=== PATIENT | female | born 1950 | race Caucasian/White ===

== ENCOUNTER → 2017-01-17 | Outpatient (CLI) | payer MEDICARE, OTHER ==
[2017-01-13 16:30] VITALS: BMI 41.7
[2017-01-17 12:22] VITALS: BP 132/84; PULSE 81; RESP 16; TEMP 98.3
--- NOTE | 2017-01-17 12:42 | P.HPIM ---
History of Present Illness H&P Date: 01/17/17 Chief Complaint: neck pain and headaches This is a 66-year-old patient referred by Dr. Garcia for chronic pain in left side of the neck, back of the head, and retro-orbital pain on the left side with very rare numbness/tingling in the bilateral upper extremities, L > R. Patient has been taking medications from Dr. Farnsworth including Percocet medications with some relief. Patient denies adverse drug effects from medications. Patient also denies new-onset weakness, bowel/bladder incontinence , or any other signs or symptoms of cauda equina syndrome. There are no signs of acute intoxication, and no indications of medication diversion or overuse. Patient notes that pain worsens significantly with neck rotation and neck flexion and improves with rest, sleep, and medication. Patient has used several types of medications for pain, including NSAIDS, OPIOIDS (Percocet), TRAMADOL. Patient HAS NOT had surgery. Patient HAS NOT had injections previously. Patient HAS had physical therapy recently without relief. In addition to above, 13-point review of systems is also negative for chest pain , shortness of breath, changes in vision, changes in hearing, new onset weakness , abdominal pain, diarrhea, extreme fatigue, malaise, fever, skin changes, homicidal or suicidal ideation, or bowel or bladder incontinence. Vital Signs: Reviewed in EMR Gen: WDWN, AAOx3, NAD HEENT: NCAT, EOMI, hearing grossly normal, TTP occipital ridge on L >> R Pulm: resp unlabored Abd: soft, NT, ND Neck: supple, trachea midline ROM in flexion cervical spine: reduced ROM in extension cervical spine: reduced Cervical paravertebral tenderness: + L side Cervical Facet tenderness: + L side Spurling's: neg Neuro: CN II-XII grossly intact, muscle strength lower extremities PRESERVED Past Medical History Past Medical History: Diabetes Mellitus, Eye Disorder, Hyperlipidemia, Hypertension, Musculoskeletal Disorder, Osteoarthritis (OA), Sleep Apnea/CPAP/ BIPAP Additional Past Medical History / Comment(s): CHRONIC BACK PAIN. MIGRAINE. HAS CPAP, NOT USING LATELY D/T [facility]LEOD. History of Any Multi-Drug Resistant Organisms: None Reported Past Surgical History: Orthopedic Surgery, Tubal Ligation Additional Past Surgical History / Comment(s): RT CARPAL TUNNEL. I&D LEFT LEG. EXC TRIP Cataract surg. RT RING TRIGGER FINGER REPAIR. Past Anesthesia/Blood Transfusion Reactions: No Reported Reaction Smoking Status: Former smoker - Past Family History Mother Family Medical History: No Reported History Medications and Allergies Home Medications Medication Instructions Recorded Confirmed Type Aspirin EC [Ecotrin] 81 mg PO DAILY 11/08/14 01/17/17 History Cholecalciferol [Vitamin D3] 1,000 unit PO DAILY 11/08/14 01/17/17 History Gabapentin [Neurontin] 300 mg PO BID 11/08/14 01/17/17 History Lisinopril [Zestril] 2.5 mg PO QAM 11/08/14 01/17/17 History Simvastatin [Simvastatin] 40 mg PO HS 11/08/14 01/17/17 History glipiZIDE [Glucotrol] 2.5 mg PO AC-BRKFST 11/08/14 01/17/17 History metFORMIN HCL [metFORMIN HCL] 1,000 mg PO BID 11/08/14 01/17/17 History Multivitamin with Iron 1 each PO DAILY 01/13/17 01/17/17 History [Multivitamins with Iron] Polyethylene Glycol 3350 [Miralax] 17 gm PO DAILY 01/13/17 01/17/17 History Topiramate [Trokendi Xr] 100 mg PO DAILY 01/13/17 01/17/17 History oxyCODONE-APAP 10-325MG [Percocet 1 tab PO QID PRN 01/13/17 01/17/17 History 10-325 mg] Allergies Allergy/AdvReac Type Severity Reaction Status Date / Time No Known Allergies Allergy Verified 01/13/17 16:12 Physical Exam Vitals: Vital Signs Temp Pulse Resp BP Pulse Ox 01/17/17 12:11 98.3 F 81 16 132/84 96 Results Comments: MRI brain without contrast dated 12/24/2013 demonstrates mild nonspecific white matter changes with product of chronic small vessel ischemic change favored secondary to age. Assessment and Plan (1) Cervical spondylosis without myelopathy Status: Chronic (2) Occipital neuralgia Status: Chronic (3) Chronic pain syndrome Status: Chronic Plan: 1. Explanation: Opioid and psychological risk scores were reviewed. Diagnoses , prognoses, and multiple treatment options including but not limited to physical therapy, interventional therapies, adjuvant medical therapies, narcotic medication therapies, and surgery were discussed with the patient and all questions were answered to the patient's satisfaction. 2. Opioid agreement: no opioids prescribed today 3. Counseling: The patient was counseled extensively on BODY MASS INDEX, EXERCISE. Specifically, the patient was instructed regarding the importance of weight control, and exercise in the context of both chronic pain and overall health. 4. Procedures: left occipital nerve block 5. Consultations: none 6. Investigations: none 7. Medications: none 8. Disposition: f/u for procedure as scheduled. Will do ONB x 2; if little relief, consider MRI C-spine PQRS measures: 1-Patient's medications are documented in the chart. 2-Tobacco use is negative 3-Patient has not had a pneumococcal vaccine. 4-Advanced care planning discussed, patient unable to give. 5-Opioid contract NOT signed with the patient. 6-Pain positive, follow-up visit or procedure scheduled 7-Patient's blood pressure measured and documented, and patient will follow up with the primary care due to hypertension. 8-Patient's weight was measured, and body mass index ABOVE the normal limits, and counseling was done. Patient instructed to follow up with PCP. 9-Patient WAS NOT identified as an unhealthy alcohol user. Time with Patient: Greater than 30
== END | disposition home or self-care (01) ==
LOC: PNWHC3 11:56
PROVIDERS: ATTEND Anesthesiology
DX: M47.812 Spondylosis without myelopathy or radiculopathy, cervical region (principal); M54.81 Occipital neuralgia; G89.4 Chronic pain syndrome; Z87.891 Personal history of nicotine dependence; Z79.899 Other long term (current) drug therapy; I10 Essential (primary) hypertension; E11.9 Type 2 diabetes mellitus without complications; Z79.4 Long term (current) use of insulin; E78.5 Hyperlipidemia, unspecified; G47.30 Sleep apnea, unspecified; Z99.89 Dependence on other enabling machines and devices; G43.009 Migraine without aura, not intractable, without status migrainosus
CPT/HCPCS: 99211

== ENCOUNTER → 2017-01-27 | Outpatient (CLI) | payer MEDICARE, OTHER ==
--- NOTE | 2017-01-28 08:59 | MM ---
Reason for exam: screening (asymptomatic). Last mammogram was performed 1 year and 1 month ago. History: Patient is postmenopausal. Physical Findings: A clinical breast exam by your physician is recommended on an annual basis and results should be correlated with mammographic findings. MG 3D Screening Mammo W/Cad Bilateral CC and MLO view(s) were taken. Prior study comparison: January 07, 2016, bilateral MG 3d screening mammo w/cad. January 03, 2015, bilateral MG screening mammo w CAD. There are scattered fibroglandular densities. No significant changes when compared with prior studies. ASSESSMENT: Benign, BI-RAD 2 RECOMMENDATION: Routine screening mammogram of both breasts in 1 year.
== END | disposition home or self-care (01) ==
LOC: RADMAMWWP 15:30
PROVIDERS: ATTEND Family Medicine
DX: Z12.31 Encounter for screening mammogram for malignant neoplasm of breast (principal)
CPT/HCPCS: 77063; G0202

== ENCOUNTER 2017-02-14 07:30 | Day surgery (SDC) | payer MEDICARE, OTHER ==
[2017-02-04 15:19] VITALS: BMI 40.2
[2017-02-14] MEDS ORDERED: LACTATED RINGERS 1,000 ML IV SCH (07:45)
[2017-02-14 07:55] VITALS: RESP 18; TEMP 96.8
[2017-02-14] MEDS ORDERED: LIDOCAINE 1% 20 ML VIAL (10MG/ML) FOR IV START SQ ONE (07:56)
[2017-02-14 08:08] LABS: Glucose,Whole Blood 151 mg/dL (75-99)
--- NOTE | 2017-02-14 08:21 | P.PCN ---
Date of Procedure: 02/14/17 Preoperative Diagnosis: Postoperative Diagnosis: Procedure(s) Performed: Implants: Surgeon: Nick Emery Pathology: none sent Condition: stable Disposition: PACU Indications for Procedure: Operative Findings: Description of Procedure: Pre-operative diagnosis: 1- Left occipital neuralgia Post Operative Diagnosis: 1- Left occipital neuralgia Procedure: Left occipital nerve block ANESTHESIA: Conscious sedation with Versed. EBL: Minimal PROCEDURE INDICATION: The patient with neck pain and headache secondary to occipital neuralgia and has failed conservative management. No use of blood thinners. PROCEDURE DESCRIPTION / TECHNIQUE: The patient was seen and identified in the preoperative area. Risks, benefits, complications, and alternatives were discussed with the patient (including but not limited to incomplete pain relief , bleeding, infection, nerve damage, and allergies to medications), the patient agreed to proceed with the procedure and signed the consent after all questions were answered. Patient was taken to the OR and time out was completed to verify proper patient , position, laterality of pain, and allergies. Pt was placed in the sitting position. IV was started. Vital signs remained stable throughout the procedure. Conscious sedation was used during the procedure to decrease patients anxiety. The cervical area and left occipital areas were prepped in the usual sterile fashion. Critical pause was taken. The left occipital ridge was palpated and was then accessed with a 25-gauge 1.5- inch needle. Then after negative aspiration, 4 ml of the total 4 ml block solution containing 3 ml of PF Bupivacaine 0.5% and Kenalog 40 mg was injected. Needle was withdrawn intact, skin was cleansed, and bandages were applied. There were no acute complications. DISPOSITION / PLANS: The patient was placed in a supine position and transferred to the recovery area in a stable condition for observation and was discharged from the recovery room after meeting discharge criteria. Home discharge instructions given to the patient by the staff. The patient was reexamined prior to discharge. The patient will schedule a follow up injection in approximately 2-4 weeks.
[2017-02-14] MEDS ORDERED: IV FLUID CONTINUATION 1,000 ML IV ONE (08:23)
[2017-02-14 08:46] VITALS: BP 114/81; PULSE 78
== END 2017-02-14 08:54 | disposition home or self-care (01) ==
LOC: ORPAIN 07:30
PROVIDERS: ATTEND Anesthesiology
DX: M54.81 Occipital neuralgia (principal); Z79.1 Long term (current) use of non-steroidal anti-inflammatories (NSAID); Z79.891 Long term (current) use of opiate analgesic
CPT/HCPCS: 64405; 99152; 99153; J2250; J3301

== ENCOUNTER → 2017-06-10 | Outpatient (CLI) | payer MEDICARE, OTHER ==
--- NOTE | 2017-06-10 18:53 | US ---
EXAMINATION TYPE: US venous doppler duplex LE DATE OF EXAM: 06/10/2017 6:34 PM COMPARISON: NONE CLINICAL HISTORY: R22.43 Localized swelling, mass and lump, lower li. Bilateral edema SIDE PERFORMED: Bilateral TECHNIQUE: The lower extremity deep venous system is examined utilizing real time linear array sonog dotty with graded compression, doppler sonography and color-flow sonography. VESSELS IMAGED: External Iliac Vein (EIV) Common Femoral Vein Deep Femoral Vein Greater Saphenous Vein * Femoral Vein Popliteal Vein Small Saphenous Vein * Proximal Calf Veins (* superficial vessels) Exam limitations due to body habitus Right Leg: Negative for DVT Left Leg: Negative for DVT No evidence of DVT bilateral legs IMPRESSION: Negative exam. No evidence of deep venous thrombosis in both legs.
== END | disposition home or self-care (01) ==
LOC: RADUSMAIN 17:47
PROVIDERS: ATTEND Family Medicine
DX: R22.43 Localized swelling, mass and lump, lower limb, bilateral (principal); E11.65 Type 2 diabetes mellitus with hyperglycemia
CPT/HCPCS: 93970

== ENCOUNTER → 2017-11-03 | Outpatient (CLI) | payer MEDICARE, OTHER ==
--- NOTE | 2017-11-03 21:51 | MR ---
EXAMINATION TYPE: MR brain wo con DATE OF EXAM: 11/03/2017 4:35 PM COMPARISON: 12/24/2013 HISTORY: R51 Headache / R41.3 Memory problem FINDINGS: The ventricles, basal cisterns and sulci overlying the cerebral convexities are mildly enlarged. There is evidence of mild periventricular white matter ischemic demyelination. Remote deep white matter insults are also noted. No acute edema is seen on diffusion weighted imaging. There is no evidence for midline shift or mass effect. Acute intracranial hemorrhage or extra-axial collection is not evident. The paranasal sinuses and mastoid air cells are well-aerated. IMPRESSION: Age-related atrophic and chronic small vessel ischemic change. No acute intracranial process at this time.
== END | disposition home or self-care (01) ==
LOC: RADMRIMAIN 15:30
PROVIDERS: ATTEND Family Medicine
DX: G31.9 Degenerative disease of nervous system, unspecified (principal); I67.82 Cerebral ischemia
CPT/HCPCS: 70551

== ENCOUNTER → 2018-01-26 | Outpatient (CLI) | payer MEDICARE, OTHER ==
--- NOTE | 2018-01-26 14:23 | CT ---
EXAMINATION TYPE: CT sinus wo con DATE OF EXAM: 01/26/2018 COMPARISON: None HISTORY: 67-year-old female Headache, nasal congestion CT DLP: 569.10 mGycm Automated exposure control for dose reduction was used. TECHNIQUE: Noncontrast axial views of the paranasal sinuses were obtained. Coronal reconstructions pe rformed. FINDINGS: PARANASAL SINUSES: Trace mucosal thickening anterior ethmoid air cells. Otherwise, the frontal, maxillary, and sphenoid sinuses are clear and well pneumatized. There is no air-fluid level. Reactive seymour- osteogenesis is not seen. There is no destruction of the osseous faria of the paranasal sinuses. THE NASAL CAVITY: The osteomeatal complexes are patent. The nasal septum is not significantly deviated. There is slight angulation. The imaged brain and orbits are normal in appearance. There is a small amount of congenital fat along the anterior falx. Visualized portions of the mastoid air cells and middle ear cavities are well pneumatized. Reformatted images confirm above findings. IMPRESSION: Very trace mucosal thickening in the anterior ethmoid air cells. Otherwise, no paranasal sinus diseas e.
== END | disposition home or self-care (01) ==
LOC: RADCTMAIN 12:11
PROVIDERS: ATTEND Family Medicine
DX: R51 Headache (principal); R09.81 Nasal congestion
CPT/HCPCS: 70486

== ENCOUNTER → 2018-02-23 | Outpatient (CLI) | payer MEDICARE, OTHER ==
--- NOTE | 2018-02-28 12:38 | MM ---
Reason for exam: screening (asymptomatic). Last mammogram was performed 1 year and 1 month ago. History: Patient is postmenopausal. Physical Findings: A clinical breast exam by your physician is recommended on an annual basis and results should be correlated with mammographic findings. MG 3D Screening Mammo W/Cad Bilateral CC and MLO view(s) were taken. Prior study comparison: January 27, 2017, bilateral MG 3d screening mammo w/cad. January 07, 2016, bilateral MG 3d screening mammo w/cad. There are scattered fibroglandular densities. Finding: There are typically benign round, linear and diffuse/scattered calcifications in both breasts, greater in the left breast. There is no discrete abnormality. ASSESSMENT: Benign, BI-RAD 2 RECOMMENDATION: Routine screening mammogram of both breasts in 1 year.
== END | disposition home or self-care (01) ==
LOC: RADMAMWWP 14:10
PROVIDERS: ATTEND Family Medicine
DX: Z12.31 Encounter for screening mammogram for malignant neoplasm of breast (principal)
CPT/HCPCS: 77063; 77067

== ENCOUNTER → 2019-05-04 | Outpatient (CLI) | payer MEDICARE, OTHER ==
--- NOTE | 2019-05-07 08:38 | BD ---
EXAMINATION TYPE: Axial Bone Density DATE OF EXAM: 05/04/2019 COMPARISON: NONE CLINICAL HISTORY: Postmenopausal female Height: 62 Weight: 230.6 FRAX RISK QUESTIONS: Alcohol (3 or more units per day): no Family History (Parent hip fracture): no Glucocorticoids (More than 3mos): no (Ex: prednisone, prednisolone, methylprednisolone, dexamethasone, and hydrocortisone). History of Fracture in Adulthood: no Secondary Osteoporosis: 1. Type 1 Diabetes: no 2. Hyperthyroidism: no 3. Menopause before 45: no 4. Malnutrition: no 5. Chronic liver disease: no Rheumatoid Arthritis: yes Current Tobacco Use: no RISK FACTORS HISTORY OF: Family History of Osteoporosis: no Active: yes Diet low in dairy products/other sources of calcium: no Postmenopausal woman: age 56 MEDICATIONS: type two diabetic meds, pain pills Additional History: EXAM MEASUREMENTS: Bone mineral densitometry was performed using the [employer] System. Bone mineral density as measured about the Lumbar spine is: ----- L1-L4(G/cm2): 1.367 T Score Values are as follows: ----- L2: 1.4 ----- L3: 2.2 ----- L4: 1.6 ----- L1-L4: 1.6 Bone mineral density has: increased 0.7 % since study of: 01.13.2015 Bone mineral density about the R hip (g/cm2): 1.031 Bone mineral density about the L hip (g/cm2): 1.067 T Score values are as follows: -----R Neck: -0.1 -----L Neck: 0.2 -----R Total: 1.3 -----L Total: 1.0 Bone mineral density has: decreased -5.5 % since study of: 01.13.2015 IMPRESSION: Normal (Values between +1 and -1 indicate normal bone mass). Consider repeating this study in 5 year s or sooner if there is some new clinical indication. NOTE: T-SCORE=SD OF THE YOUNG ADULT MEAN.
--- NOTE | 2019-05-07 10:07 | MM ---
Reason for exam: screening (asymptomatic). Last mammogram was performed 1 year and 2 months ago. History: Patient is postmenopausal. Physical Findings: A clinical breast exam by your physician is recommended on an annual basis and results should be correlated with mammographic findings. MG Screening Mammo w CAD Bilateral CC and MLO view(s) were taken. Prior study comparison: February 23, 2018, bilateral MG 3d screening mammo w/cad. January 27, 2017, bilateral MG 3d screening mammo w/cad. There are scattered fibroglandular densities. No significant changes when compared with prior studies. ASSESSMENT: Negative, BI-RAD 1 RECOMMENDATION: Routine screening mammogram of both breasts in 1 year.
== END | disposition home or self-care (01) ==
LOC: RADMAMWWP 13:40
PROVIDERS: ATTEND Family Medicine
DX: Z12.31 Encounter for screening mammogram for malignant neoplasm of breast (principal); Z13.820 Encounter for screening for osteoporosis; Z78.0 Asymptomatic menopausal state
CPT/HCPCS: 77067; 77080

== ENCOUNTER → 2019-11-08 | Outpatient (CLI) | payer MEDICARE ==
--- NOTE | 2019-11-08 15:03 | CT ---
EXAMINATION TYPE: CT abdomen pelvis w con DATE OF EXAM: 11/08/2019 HISTORY: Abnormal liver enzymes. CT DLP: 1833.7mGycm Automated Exposure Control for Dose Reduction was Utilized. CONTRAST: CT scan of the abdomen and pelvis is performed with IV Contrast, patient injected with 100 mL of Isov ue M300. COMPARISON: None. FINDINGS: LUNG BASES: Mild cardiomegaly. Calcification at level of mitral valve. LIVER/GB: Versus heterogeneously hypodense relative to spleen suggesting mild diffuse fatty infiltrat ion. This can be confirmed with noncontrast CT or ultrasound if desired. No suspicious masses or duct al dilatation. No CT dense intraluminal gallstones in the gallbladder PANCREAS: No significant abnormality is seen. SPLEEN: Incidental tiny splenule axial image 31. ADRENALS: No significant abnormality is seen. KIDNEYS: Symmetric cortical atrophy uptake and excretion without hydronephrosis seen bilaterally. Sim ple appearing 1.5 cm thin-walled cyst anteriorly upper pole of the right kidney axial image 31. No in traluminal calculi in the bladder. BOWEL: Small hiatal hernia. Oral contrast reaches level of cecum. Normal-appearing appendix coronal i mage 59. No suspicious small or large bowel dilatation. UTERUS/ADNEXA: Anteverted uterus projecting to left of midline. Normal-sized ovaries. Occasional pelv ic phleboliths. LYMPH NODES: No greater than 1cm abdominal or pelvic lymph nodes are appreciated. OSSEOUS STRUCTURES: Facet arthropathy lower lumbar spine. Moderate to severe multilevel disc space na rrowing L2-L3 through the L5-S1 levels. Moderate axial joint space loss in both hips. OTHER: No significant additional abnormality is seen. IMPRESSION: Heterogeneous hypodense appearance of the liver suggests probable diffuse fatty infiltrat ion. No worrisome intrahepatic mass or intrahepatic ductal dilatation is seen.
== END | disposition home or self-care (01) ==
LOC: RADCTMAIN 12:01
PROVIDERS: ATTEND Internal Medicine Hematology & Oncology
DX: R74.0 Nonspecific elevation of levels of transaminase and lactic acid dehydrogenase [LDH] (principal)
CPT/HCPCS: 82565; 84520; 74177; 36415; Q9967 ×2

== ENCOUNTER → 2020-12-25 | Outpatient (CLI) | payer MEDICARE, OTHER ==
--- NOTE | 2020-12-26 12:42 | MM ---
Reason for exam: screening (asymptomatic). Last mammogram was performed 1 year and 8 months ago. History: Patient is postmenopausal. Physical Findings: A clinical breast exam by your physician is recommended on an annual basis and results should be correlated with mammographic findings. MG Screening Mammo w CAD Bilateral CC and MLO view(s) were taken. Prior study comparison: May 04, 2019, bilateral MG screening mammo w CAD. February 23, 2018, bilateral MG 3d screening mammo w/cad. There are scattered fibroglandular densities. ASSESSMENT: Negative, BI-RAD 1 RECOMMENDATION: Routine screening mammogram of both breasts in 1 year.
== END | disposition home or self-care (01) ==
LOC: RADMAMWWP 12:52
PROVIDERS: ATTEND Family Medicine
DX: Z12.31 Encounter for screening mammogram for malignant neoplasm of breast (principal); Z78.0 Asymptomatic menopausal state
CPT/HCPCS: 77067

== ENCOUNTER → 2021-11-04 | Outpatient (CLI) | payer MEDICARE, OTHER ==
--- NOTE | 2021-11-04 12:07 | US ---
EXAMINATION TYPE: US venous doppler duplex LE RT DATE OF EXAM: 11/04/2021 11:49 AM COMPARISON: Bilateral lower extremity ultrasound June 10, 2017. CLINICAL HISTORY: M25.561 Pain in RT Knee. Pt states right knee pain SIDE PERFORMED: Right TECHNIQUE: The lower extremity deep venous system is examined utilizing real time linear array sonog dotty with graded compression, doppler sonography and color-flow sonography. VESSELS IMAGED: Common Femoral Vein Deep Femoral Vein Greater Saphenous Vein * Femoral Vein Popliteal Vein Small Saphenous Vein * Proximal Calf Veins (* superficial vessels) Right Leg: Negative for DVT Results given to Dr. Castellanos at time of exam Grayscale, color doppler, spectral doppler imaging performed of the deep veins of the right lower ext remity. There is normal flow, compressibility, vascular waveforms. IMPRESSION: No ultrasound evidence for acute DVT in the right lower extremity.
== END | disposition home or self-care (01) ==
LOC: RADUSWWP 11:28
PROVIDERS: ATTEND Family Medicine
DX: M25.561 Pain in right knee (principal)

== ENCOUNTER → 2021-12-23 | Outpatient (CLI) | payer MEDICARE, OTHER ==
--- NOTE | 2021-12-23 09:35 | MR ---
EXAMINATION TYPE: MR cspine/tspine/lspine wo con DATE OF EXAM: 12/23/2021 COMPARISON: Prior MRI cervical and lumbar spine 2011 HISTORY: Back pain, sciatica TECHNIQUE: Multiplanar, multisequence imaging of the cervical, thoracic, and lumbar spine are all per formed without IV contrast. C-SPINE: FINDINGS: Sagittal images of the cervical spine show the craniocervical junction to remain within nor mal limits. The cervical and upper thoracic spinal cord remains normal in caliber and signal. Verte bral alignment is stable and satisfactory. The vertebral body and intravertebral disk heights remain normal. Small hemangioma involving the anterior C6 vertebra sagittal image 6 noted. Axial images show C2-C3 level to appear within normal limits. Axial images at C3-C4 levels with broad-based left paracentral/foraminal disc protrusion effacing ant erolateral thecal sac and causing moderate left-sided neural foraminal narrowing. Axial images at C4-C5 level appear within normal limits. Axial images at C5-C6 levels show focal broad-based left paracentral disc protrusion effacing the ant erior thecal sac causing flattening of the ventral surface more prominent from prior, patent bilatera l neural foramina. Axial images at C6-C7 and C7-T1 levels appear within normal limits. IMPRESSION: Posterior disc herniations at C3-C4 and C5-C6 levels noted on current study. T-SPINE: FINDINGS: Spinal cord shows normal course, caliber, and signal as it courses the thoracic spine. Cooper tebral body heights and alignment are satisfactory. Disc space heights are preserved. Tiny posterior disc herniations mildly efface the anterior thecal sac at T5-T6 and T6-T7 level sagittal image 7. Bon e marrow signal intensity is preserved. Mild to moderate multilevel anterior spurring. Review of the axial images confirm the above left paracentral tiny disc protrusions. No additional la rge disc herniation is present. Visualized thorax and upper abdomen show no significant abnormality. IMPRESSION: A few tiny posterior disc herniations. L-SPINE: Sagittal images of the lumbar spine show vertebral body height to remain satisfactory. Alignment is m ore straightened. Multilevel disc desiccation with moderate to advanced disc space narrowing at L2-L3 through the L4-L5 levels and new heterogeneous Modic type II endplate changes more prominent from pr ior. The conus medullaris is normal in position and signal ending at mid L1 level. Axial images show T12-L1 level to appear within normal limits. Axial images at L1-L2 level show mild broad disc bulge mildly effacing the anterior thecal sac and mi ld facet arthropathy bilaterally. Patent bilateral neural foramina. Axial images at L2-L3 level show mild mild broad-based posterior disc protrusion mildly effacing the anterior thecal sac and mild facet arthropathy bilaterally. Patent bilateral neural foramina. Axial images at the L3-L4 level show mild/moderate broad disc bulge with central disc protrusion effa cing the anterior thecal sac and mild/moderate facet arthropathy and ligamentum flavum hypertrophy. T here is mild to moderate bilateral anterior inferior neural foraminal narrowing noted. Axial images at L4-L5 level show moderate facet arthropathy bilaterally. There is some effacement of the left lateral thecal sac. The bilateral neural foramina noted. Axial images at L5-S1 levels show [id number] facet arthropathy bilaterally. Spinal canal is pre served. Bilateral neural foramina are patent. IMPRESSION: Straightening of lumbar spine with multilevel degenerative changes showing some interval degenerative progression from 2012 MRI..
== END | disposition home or self-care (01) ==
LOC: RADMRIMAIN 07:15
PROVIDERS: ATTEND Family Medicine
DX: M50.122 Cervical disc disorder at C5-C6 level with radiculopathy (principal); M51.14 Intervertebral disc disorders with radiculopathy, thoracic region; M51.16 Intervertebral disc disorders with radiculopathy, lumbar region; M47.26 Other spondylosis with radiculopathy, lumbar region
CPT/HCPCS: 72141; 72146; 72148

== ENCOUNTER → 2022-01-12 | Outpatient (CLI) | payer MEDICARE, OTHER ==
--- NOTE | 2022-01-14 08:30 | MM ---
Reason for Exam: Screening (asymptomatic). Last mammogram was performed 1 year(s) and 1 month(s) ago. Patient History: Menarche at age 14. First Full-Term at age 19. Postmenopausal. Risk Values: Shannan 5 year model risk: 1.1%. NCI Lifetime model risk: 3.2%. Prior Study Comparison: 02/23/2018 Bilateral Screening Mammogram, [facility]. 05/04/2019 Bilateral Screening Mammogram, [facility]. 12/25/2020 Bilateral Screening Mammogram, [facility]. Tissue Density: There are scattered fibroglandular densities. Findings: Analyzed By CAD. There are grouped punctate calcifications in the outer left breast which is an interval change. This may be associated with a vascular structure. Additional magnification views are recommended. Right breast appears stable. Overall Assessment: Incomplete: need additional imaging evaluation, BI-RAD 0 Management: Diagnostic Mammogram of the left breast. A negative mammogram report should not preclude additional follow up of suspicious palpable abnormalities. Patient should continue monthly self breast exam. A clinical breast exam by your physician is recommended on an annual basis and results should be correlated with mammographic findings. Electronically signed and approved by: Matthew Dodd D.O. Radiologis
== END | disposition home or self-care (01) ==
LOC: RADMAMWWP 14:53
PROVIDERS: ATTEND Family Medicine
DX: Z12.31 Encounter for screening mammogram for malignant neoplasm of breast (principal); Z78.0 Asymptomatic menopausal state
CPT/HCPCS: 77063; 77067

== ENCOUNTER → 2022-01-25 | Outpatient (CLI) | payer MEDICARE, OTHER ==
--- NOTE | 2022-01-27 12:30 | MM ---
Reason for Exam: Additional evaluation requested from abnormal screening. Last screening mammogram was performed less than 1 month ago. Patient History: Menarche at age 14. First Full-Term at age 19. Postmenopausal. Risk Values: Shannan 5 year model risk: 1.1%. NCI Lifetime model risk: 3.2%. Prior Study Comparison: 05/04/2019 Bilateral Screening Mammogram, [facility]. 12/25/2020 Bilateral Screening Mammogram, [facility]. 01/12/2022 Bilateral MG 3D screening mammo w/cad, [facility]. Tissue Density: Left: The breast tissue is heterogeneously dense. This may lower the sensitivity of mammography. Findings: Analyzed By CAD. Scattered left breast calcifications without suspicious clusters seen at this time. Overall Assessment: Benign, BI-RAD 2 Management: Screening Mammogram of both breasts in 1 year. A clinical breast exam by your physician is recommended on an annual basis and results should be correlated with mammographic findings. This exam should not preclude additional follow-up of suspicious palpable abnormalities. Results were given to the patient verbally at the time of exam. Electronically signed and approved by: Victor Manuel Francis M.D. Radiologis
== END | disposition home or self-care (01) ==
LOC: RADMAMWWP 13:28
PROVIDERS: ATTEND Family Medicine
DX: R92.8 Other abnormal and inconclusive findings on diagnostic imaging of breast (principal); Z78.0 Asymptomatic menopausal state
CPT/HCPCS: 77065; G0279; 77061

== ENCOUNTER → 2022-02-23 | Outpatient (CLI) | payer MEDICARE ==
--- NOTE | 2022-02-23 14:44 | CT ---
EXAMINATION TYPE: CT sinus wo con CT DLP: 577.3 mGycm, Automated exposure control for dose reduction was used. DATE OF EXAM: 02/23/2022 2:18 PM COMPARISON: 01/26/2019. CLINICAL INDICATION:Female, 71 years old with history of R51.9 headache,R51; [facility], Headaches CONTRAST: None. TECHNIQUE: Multiple thin axial images were obtained through the paranasal sinuses without the use of IV contrast. Additional coronal and sagittal reformatted images were submitted for evaluation. FINDINGS: Frontal sinuses: Normally developed and aerated. Frontal Recess: Clear Modified Cori-Antonio Score: Right 1 = 1-25% Opacified, Left 0 = 0% Opacified Maxillary Sinuses: Normally developed and aerated. Modified Coir-Antonio Score: Right 0 = 0% Opacified, Left 0 = 0% Opacified Maxillary Infundibula(OMC): Clear, No Alberto cells identified. Modified Cori-Antonio Score: Right 0 = Completely patent, Left 0 = Completely patent Ethmoid sinuses: Normally developed and aerated. Ethmoidal notch: Unprotected bilateral anterior ethm oidal arteries. Modified [place]-Vicco Score: Anterior Right 0 = 0% Opacified, Left 0 = 0% Opacified Posterior Right 0 = 0% Opacified, Left 0 = 0% Opacified Sphenoid sinuses: Normally developed and aerated. There is sellar sphenoid sinus pneumatization witho ut evidence of dehiscence. No dehiscence of carotid canal. No evidence of optic nerve dehiscence wit hin the sphenoid sinus. No evidence of Onodi cells. Sphenoethmoidal recesses: Clear. Modified Cori-Vicco Score: Right 1 = 1-25% Opacified, Left 0 = 0% Opacified. Nasal septum: Within normal limits Nasal Turbinates: Within normal limits. Mastoid air cells & middle ears: The air cells are clear. The middle ears are grossly unremarkable. Modified Soft tissues & Brain: Partially seen without gross abnormality. Globes are intact. Other: Cribriform plate demonstrates symmetric Keros classification type 2 cribriform plate. No evidence of bony dehiscence of skull base. Lamina papyracea is intact without evidence of remote orbital fracture or orbital prolapse into the e thmoid sinus. IMPRESSION: 1. No significant mucosal sinus disease. 2. The ostiomeatal units, frontonasal and sphenoethmoidal recesses are clear. 3. Opacification burden of 2/54 on the Modified [place]-Antonio scoring system.
== END | disposition home or self-care (01) ==
LOC: RADCTMAIN 14:03
PROVIDERS: ATTEND Family Medicine
DX: J34.89 Other specified disorders of nose and nasal sinuses (principal); R51.0 Headache with orthostatic component, not elsewhere classified
CPT/HCPCS: 70486

== ENCOUNTER 2023-03-25 09:23 | Emergency (ER) | payer MEDICARE ==
[2023-03-25 09:28] VITALS: RESP 20; TEMP 98.2
[2023-03-25] MEDS ORDERED: HYDROmorphone 1 MG/ML 1 ML SYRINGE IVP STA ×2 (09:50→13:06)
[2023-03-25] MEDS ORDERED: KETOROLAC 15 MG/ML 1 ML VIAL IVP STA (09:50)
--- NOTE | 2023-03-25 09:52 | ED ---
General Adult HPI - General Chief complaint: Neck Pain/Injury Stated complaint: Neck pain Time Seen by Provider: 03/25/23 09:29 Source: patient, RN notes reviewed Mode of arrival: ambulatory Limitations: no limitations - History of Present Illness Initial comments: Patient is a pleasant 73-year-old female presenting to the emergency department with concern with neck pain. Onset of symptoms was a couple of days ago when she woke up. Discomfort has been steady and severe since that time. Patient states it is difficult to lift her right arm secondary to pain. No weakness. Patient states pain starts in her mid to lower neck and does radiate down her arm. Patient does have history of chronic neck problems. Patient does see a pain doctor for neck problems and does take Percocet for this. Patient did take 1 Percocet this morning. No loss of sensation. - Related Data Home Medications Medication Instructions Recorded Confirmed Aspirin EC [Ecotrin] 81 mg PO DAILY 11/08/14 05/02/17 Cholecalciferol [Vitamin D3] 1,000 unit PO DAILY 11/08/14 05/02/17 Gabapentin [Neurontin] 300 mg PO BID 11/08/14 05/02/17 Simvastatin 40 mg PO HS 11/08/14 05/02/17 glipiZIDE [Glucotrol] 2.5 mg PO AC-BRKFST 11/08/14 05/02/17 lisinopriL [Zestril] 2.5 mg PO QAM 11/08/14 05/02/17 metFORMIN HCL 1,000 mg PO BID 11/08/14 05/02/17 Multivitamin with Iron 1 each PO DAILY 01/13/17 05/02/17 [Multivitamins with Iron] Topiramate [Trokendi Xr] 100 mg PO HS 01/13/17 05/02/17 oxyCODONE-APAP 10-325MG [Percocet 1 tab PO QID PRN 01/13/17 05/02/17 10-325 mg] polyethylene glycoL 3350 [Miralax] 17 gm PO DAILY 01/13/17 05/02/17 Previous Rx's Medication Instructions Recorded Cyclobenzaprine [Flexeril] 10 mg PO TID PRN #12 tablet 03/25/23 Allergies Allergy/AdvReac Type Severity Reaction Status Date / Time No Known Allergies Allergy Verified 03/25/23 09:27 Review of Systems ROS Statement: Those systems with pertinent positive or pertinent negative responses have been documented in the HPI. ROS Other: All systems not noted in ROS Statement are negative. Constitutional: Denies: fever Eyes: Denies: eye pain ENT: Denies: ear pain Respiratory: Denies: cough Cardiovascular: Denies: chest pain Endocrine: Denies: fatigue Gastrointestinal: Denies: abdominal pain Genitourinary: Denies: dysuria Musculoskeletal: Reports: as per HPI Neurological: Denies: headache, weakness, confusion Past Medical History Past Medical History: Diabetes Mellitus, Eye Disorder, Hyperlipidemia, Hyper tension, Musculoskeletal Disorder, Osteoarthritis (OA), Sleep Apnea/CPAP/BIPAP Additional Past Medical History / Comment(s): ANEMIA,CHRONIC NECK, BACK PAIN; FREQ MIGRAINE. NEUROPATHY IN FEET. HAS CPAP, NOT USING LATELY D/T MCLEOD. History of Any Multi-Drug Resistant Organisms: None Reported Past Surgical History: Orthopedic Surgery, Tubal Ligation Additional Past Surgical History / Comment(s): RT CARPAL TUNNEL. I&D LEFT LEG. EXC TRIP Cataract surg. RT RING TRIGGER FINGER REPAIR. Past Anesthesia/Blood Transfusion Reactions: No Reported Reaction Past Psychological History: No Psychological Hx Reported Smoking Status: Never smoker Past Alcohol Use History: None Reported Past Drug Use History: None Reported - Past Family History Mother Family Medical History: No Reported History General Exam Limitations: no limitations General appearance: alert, in no apparent distress Head exam: Present: normocephalic Eye exam: Present: normal appearance Neck exam: Present: tenderness (Moderate tenderness mid to lower cervical spine) Respiratory exam: Present: normal lung sounds bilaterally Cardiovascular Exam: Present: regular rate, normal rhythm Expanded Peripheral pulses: 2+: Radial (R) GI/Abdominal exam: Present: soft. Absent: tenderness Extremities exam: Present: normal inspection, full ROM (Pain with range of motion of the right upper extremity in the superior trapezius) Back exam: Present: normal inspection Neurological exam: Present: alert. Absent: motor sensory deficit Expanded Sensory exam: Upper Extremity Light Touch: Normal Motor strength exam: RUE: 5 Psychiatric exam: Present: normal affect, normal mood Skin exam: Present: normal color Course Vital Signs 03/25/23 03/25/23 09:25 12:56 Temperature 98.2 F Pulse Rate 83 80 Respiratory 20 18 Rate Blood Pressure 98/61 126/78 O2 Sat by Pulse 96 98 Oximetry Medical Decision Making - Medical Decision Making Was pt. sent in by a medical professional or institution (, PA, [employer] C[employer]IED [employer]ER[employer], urgent care, hospital, or snf...) When possible be specific @ -No Did you speak to anyone other than the patient for history (EMS, parent, family, police, friend...)? What history was obtained from this source @ -No Did you review nursing and triage notes (agree or disagree)? Why? @ -I reviewed and agree with nursing and triage notes Were old charts reviewed (outside hosp., previous admission, EMS record, old EKG, old radiological studies, urgent care reports/EKG's, snf records)? Report findings @ -No old charts were reviewed Differential Diagnosis (chest pain, altered mental status, abdominal pain women, abdominal pain men, vaginal bleeding, weakness, fever, dyspnea, syncope, headache, dizziness, GI bleed, back pain, seizure, CVA, palpatations, mental health, musculoskeletal)? @ -Differential Musculoskeletal Muscular strain, contusion, ligament sprain, fracture, arthritis, septic arthritis, bursitis, cellulitis, muscle spasm, nerve compression, DVT, arterial occlusion, herpes zoster, electrolyte abnormality, tumor.... This is not meant to be in all inclusive list EKG interpreted by me (3pts min.). @ -As above X-rays interpreted by me (1pt min.). @ -None done CT interpreted by me (1pt min.). @ -Report reviewed U/S interpreted by me (1pt. min.). @ -None done What testing was considered but not performed or refused? (CT, X-rays, U/S, labs)? Why? @ -None What meds were considered but not given or refused? Why? @ -None Did you discuss the management of the patient with other professionals (professionals i.e. , TANYA, [employer], lab, RT, psych nurse, social sciences department chair, seamer elastic band, teacher, retirement officer, wrapper caser)? Give summary @ -No Was smoking cessation discussed for >3mins.? @ -No Was critical care preformed (if so, how long)? @ -No Were there social determinants of health that impacted care today? How? (Homelessness, low income, unemployed, alcoholism, drug addiction, transportation, low edu. Level, literacy, decrease access to med. care, custodial, rehab)? @ -No Was there de-escalation of care discussed even if they declined (Discuss DNR or withdrawal of care, Hospice)? DNR status @ -No What co-morbidities impacted this encounter? (DM, HTN, Smoking, COPD, CAD, Cancer, CVA, ARF, Chemo, Hep., AIDS, mental health diagnosis, sleep apnea, morbid obesity)? @ -None Was patient admitted / discharged? Hospital course, mention meds given and route, prescriptions, significant lab abnormalities, going to OR and other pertinent info. @ -Patient reevaluated and is feeling better following pain medication. Patient still having some discomfort and receptive to further medication prior to discharge. Patient is also receptive sling. Patient is advised follow-up with her pain doctor and primary care physician. Patient will be provided number for orthopedics. Undiagnosed new problem with uncertain prognosis? @ -No Drug Therapy requiring intensive monitoring for toxicity (Heparin, Nitro, Insulin, Cardizem)? @ -No Were any procedures done? @ -No Diagnosis/symptom? @ -Cervical strain. Acute, or Chronic, or Acute on Chronic? @ -Acute on chronic Uncomplicated (without systemic symptoms) or Complicated (systemic symptoms)? @ -default Side effects of treatment? @ -No Exacerbation, Progression, or Severe Exacerbation? @ -No Poses a threat to life or bodily function? How? (Chest pain, USA, [place], pneumonia, PE, COPD, DKA, ARF, appy, cholecystitis, CVA, Diverticulitis, Homicidal, Suicidal, threat to staff... and all critical care pts) @ -No Disposition Clinical Impression: Strain of neck muscle, Cervical radiculopathy Disposition: HOME SELF-CARE Condition: Stable Instructions (If sedation given, give patient instructions): Cervical Strain (ED) Additional Instructions: Please follow-up to pain doctor and primary care physician in the next day or 2 for recheck. Please follow-up with orthopedics as well, number provided. Return for increased pain, weakness, worsening or changing symptoms or any other concerns. Prescription sent to pharmacy Prescriptions: Cyclobenzaprine [Flexeril] 10 mg PO TID PRN #12 tablet PRN Reason: Pain Is patient prescribed a controlled substance at d/c from ED?: No Referrals: Jasmin Iglesias MD [Primary Care Provider] - 1-2 days Alexey Hale DO [Doctor of Osteopathic Medicine] - 1-2 days Time of Disposition: 13:08
--- NOTE | 2023-03-25 11:12 | CT ---
EXAMINATION TYPE: CT cervical spine wo con DATE OF EXAM: 03/25/2023 COMPARISON: None HISTORY: 73-year-old female with pain TECHNIQUE: Contiguous axial scanning of the cervical spine without IV contrast. Coronal and sagittal reconstructions performed. CT DLP: 635.3 mGycm Automated exposure control for dose reduction was used. FINDINGS: Mild to moderate disc/endplate degenerative change mid to lower cervical spine. Scattered facet and uncovertebral joint arthropathy is present throughout. No craniocervical junction abnormality, predental space widening, or prevertebral soft tissue swellin g. Degenerative change at the C1 dens articulation. Degenerative grade 1 anterolisthesis C4-C5. Mild narrowing of the spinal canal C5-C6 and C6-C7. No acute fracture of the cervical spine. At C3-C4, there is moderate to severe left neuroforaminal stenosis. Otherwise, there are variable mil d to moderate neural foraminal narrowings in the upper and mid cervical spine. IMPRESSION: NO ACUTE FRACTURE OF THE CERVICAL SPINE. MODERATE SPONDYLOTIC CHANGE THROUGHOUT. DEGENERATIVE GRADE 1 ANTEROLISTHESIS C4-C5.
[2023-03-25 15:31] VITALS: BP 120/101; PULSE 77
== END 2023-03-25 14:16 | disposition home or self-care (01) ==
LOC: EC 09:23
DX: S16.1XXA Strain of muscle, fascia and tendon at neck level, initial encounter (principal); M54.12 Radiculopathy, cervical region; E11.36 Type 2 diabetes mellitus with diabetic cataract; I10 Essential (primary) hypertension; E78.5 Hyperlipidemia, unspecified; Z79.84 Long term (current) use of oral hypoglycemic drugs; Z79.82 Long term (current) use of aspirin; Z79.899 Other long term (current) drug therapy; X58.XXXA Exposure to other specified factors, initial encounter
CPT/HCPCS: 72125; 99284; 96374; 96375; 96376; J1170; J1885

== ENCOUNTER → 2023-05-25 | Outpatient (CLI) | payer MEDICARE ==
--- NOTE | 2023-05-26 17:25 | MM ---
Reason for Exam: Screening (asymptomatic). Last mammogram was performed 1 year(s) and 4 month(s) ago. Patient History: Menarche at age 14. First Full-Term at age 19. Postmenopausal. Risk Values: Shannan 5 year model risk: 1.2%. NCI Lifetime model risk: 2.9%. Prior Study Comparison: 12/25/2020 Bilateral Screening Mammogram, [facility]. 01/12/2022 Bilateral MG 3D screening mammo w/cad, [facility]. 01/25/2022 Left MG 3D work up w/cad LT, [facility]. Tissue Density: There are scattered fibroglandular densities. Findings: Analyzed By CAD. Pattern appears symmetrical and stable. No significant interval changes are evident. Scattered punctate calcifications are left breast. The pattern appears stable. No significant interval changes. No suspicious groups of microcalcifications, spiculated or lobular masses, architectural distortion or other secondary signs of malignancy are mammographically apparent. Overall Assessment: Benign, BI-RAD 2 Management: Screening Mammogram of both breasts in 1 year. A negative mammogram report should not preclude additional follow up of suspicious palpable abnormalities. Patient should continue monthly self breast exam. A clinical breast exam by your physician is recommended on an annual basis and results should be correlated with mammographic findings. Electronically signed and approved by: Matthew Dodd D.O. Radiologis
== END | disposition home or self-care (01) ==
LOC: RADMAMWWP 15:55
PROVIDERS: ATTEND Family Medicine
DX: Z12.31 Encounter for screening mammogram for malignant neoplasm of breast (principal); Z78.0 Asymptomatic menopausal state
CPT/HCPCS: 77063; 77067

== ENCOUNTER 2024-12-19 10:12 | Emergency (ER) | payer MEDICARE ==
[2024-12-19 10:27] VITALS: BP 130/82; PULSE 90; RESP 20; TEMP 98.2
--- NOTE | 2024-12-19 10:43 | ED ---
General Adult HPI - General Chief complaint: Extremity Injury, Upper Stated complaint: R shoulder pain Time Seen by Provider: 12/19/24 10:29 Source: patient, RN notes reviewed Mode of arrival: ambulatory Limitations: no limitations - History of Present Illness Initial comments: 74-year-old female presents emergency room with complaints of nontraumatic right shoulder pain. Patient states that the pain will radiate into her neck and down her arm described as a numbness and tingling sensation. Patient states the pain started a week ago after she had nerve testing for neuropathy. Patient has full range of motion of the shoulder. She denies chest pain, difficulty breathing, headache or visual disturbances. She denies previous surgeries of the right shoulder. - Related Data Home Medications Medication Instructions Recorded Confirmed Aspirin EC [Ecotrin] 81 mg PO DAILY 11/08/14 05/02/17 Cholecalciferol [Vitamin D3] 1,000 unit PO DAILY 11/08/14 05/02/17 Gabapentin [Neurontin] 300 mg PO BID 11/08/14 05/02/17 Simvastatin 40 mg PO HS 11/08/14 05/02/17 glipiZIDE [Glucotrol] 2.5 mg PO AC-BRKFST 11/08/14 05/02/17 lisinopriL [Zestril] 2.5 mg PO QAM 11/08/14 05/02/17 metFORMIN HCL 1,000 mg PO BID 11/08/14 05/02/17 Multivitamin with Iron 1 each PO DAILY 01/13/17 05/02/17 [Multivitamins with Iron] Topiramate [Trokendi Xr] 100 mg PO HS 01/13/17 05/02/17 oxyCODONE-APAP 10-325MG [Percocet 1 tab PO QID PRN 01/13/17 05/02/17 10-325 mg] polyethylene glycoL 3350 [Miralax] 17 gm PO DAILY 01/13/17 05/02/17 Previous Rx's Medication Instructions Recorded Cyclobenzaprine [Flexeril] 10 mg PO TID PRN #12 tablet 03/25/23 Ibuprofen [Motrin] 800 mg PO Q8HR PRN #30 tab 12/19/24 Allergies Allergy/AdvReac Type Severity Reaction Status Date / Time No Known Allergies Allergy Verified 03/25/23 09:27 Review of Systems ROS Statement: Those systems with pertinent positive or pertinent negative responses have been documented in the HPI. ROS Other: All systems not noted in ROS Statement are negative. Past Medical History Past Medical History: Diabetes Mellitus, Eye Disorder, Hyperlipidemia, Hypertension, Musculoskeletal Disorder, Osteoarthritis (OA), Sleep Apnea/CPAP/BIPAP Additional Past Medical History / Comment(s): ANEMIA,CHRONIC NECK, BACK PAIN; FREQ MIGRAINE. NEUROPATHY IN FEET. HAS CPAP, NOT USING LATELY D/T MCLEOD. History of Any Multi-Drug Resistant Organisms: None Reported Past Surgical History: Orthopedic Surgery, Tubal Ligation Additional Past Surgical History / Comment(s): RT CARPAL TUNNEL. I&D LEFT LEG. EXC TRIP Cataract surg. RT RING TRIGGER FINGER REPAIR. Past Anesthesia/Blood Transfusion Reactions: No Reported Reaction Past Psychological History: No Psychological Hx Reported Smoking Status: Never smoker Past Alcohol Use History: None Reported Past Drug Use History: None Reported - Past Family History Mother Family Medical History: No Reported History General Exam Limitations: no limitations General appearance: alert, in no apparent distress ENT exam: Present: normal exam, mucous membranes moist Neck exam: Present: normal inspection, other (parasthesias of right side of neck). Absent: tenderness, meningismus, lymphadenopathy Respiratory exam: Present: normal lung sounds bilaterally. Absent: respiratory distress, wheezes, rales, rhonchi, stridor Cardiovascular Exam: Present: regular rate, normal rhythm, normal heart sounds. Absent: systolic murmur, diastolic murmur, rubs, gallop, clicks GI/Abdominal exam: Present: soft, normal bowel sounds. Absent: distended, tenderness, guarding, rebound, rigid Right Shoulder Exam: Present: normal inspection, full ROM, tenderness (w/ ROM). Absent: swelling, ecchymosis, deformity, crepitus, dislocation Neuro motor exam: Present: wrist extension intact, thumb opposition intact Vascular: Absent: vascular compromise Back exam: Present: normal inspection Course Vital Signs 12/19/24 10:25 Temperature 98.2 F Pulse Rate 90 Respiratory 20 Rate Blood Pressure 130/82 O2 Sat by Pulse 98 Oximetry Medical Decision Making - Medical Decision Making Was pt. sent in by a medical professional or institution (, PA, REFINING SUPERVISOR, urgent care, hospital, or fpc...) When possible be specific @ -No Did you speak to anyone other than the patient for history (EMS, parent, family, police, friend...)? What history was obtained from this source @ -No Did you review nursing and triage notes (agree or disagree)? Why? @ -I reviewed and agree with nursing and triage notes Were old charts reviewed (outside hosp., previous admission, EMS record, old EKG, old radiological studies, urgent care reports/EKG's, fpc records)? Report findings @ -No old charts were reviewed Differential Diagnosis (chest pain, altered mental status, abdominal pain women, abdominal pain men, vaginal bleeding, weakness, fever, dyspnea, syncope, hea dache, dizziness, GI bleed, back pain, seizure, CVA, palpatations, mental health, musculoskeletal)? @ -Differential Musculoskeletal Muscular strain, contusion, ligament sprain, fracture, arthritis, septic arthritis, bursitis, cellulitis, muscle spasm, nerve compression, DVT, arterial occlusion, herpes zoster, electrolyte abnormality, tumor.... This is not meant to be in all inclusive list EKG interpreted by me (3pts min.). @ -None X-rays interpreted by me (1pt min.). @ -X-ray of the right shoulder reveals no acute osseous pathology CT interpreted by me (1pt min.). @ -None done U/S interpreted by me (1pt. min.). @ -None done What testing was considered but not performed or refused? (CT, X-rays, U/S, labs)? Why? @ -None What meds were considered but not given or refused? Why? @ -None Did you discuss the management of the patient with other professionals (professionals i.e. , PA, REFINING SUPERVISOR, lab, RT, psych nurse, social services designee, surgical nurse, teacher, custodial officer, family service caseworker)? Give summary @ -No Was smoking cessation discussed for >3mins.? @ -No Was critical care preformed (if so, how long)? @ -No Were there social determinants of health that impacted care today? How? (Homelessness, low income, unemployed, alcoholism, drug addiction, transportation, low edu. Level, literacy, decrease access to med. care, fci, rehab)? @ -No Was there de-escalation of care discussed even if they declined (Discuss DNR or withdrawal of care, Hospice)? DNR status @ -No What co-morbidities impacted this encounter? (DM, HTN, Smoking, COPD, CAD, Cancer, CVA, ARF, Chemo, Hep., AIDS, mental health diagnosis, sleep apnea, morbid obesity)? @ -None Was patient admitted / discharged? Hospital course, mention meds given and route, prescriptions, significant lab abnormalities, going to OR and other pertinent info. @ -Discharge. 74-year-old female presents to the emergency room with complaints of right shoulder nontraumatic pain. Patient is wearing a sling which she states is from presenting to the emergency room with female scope with similar symptoms. Patient is full range of motion of the right shoulder however states that this elicits pain. Is endorsing paresthesias over the anterior arm extending up into the neck consistent with cervical radiculopathy. X-ray is negative. Patient fine with pain medication instructed to continue to complete gentle stretching at home. She is provided with maintenance specialist follow- up. Return parameters discussed. Case discussed with Dr. Ackerman Undiagnosed new problem with uncertain prognosis? @ -No Drug Therapy requiring intensive monitoring for toxicity (Heparin, Nitro, Insulin, Cardizem)? @ -No Were any procedures done? @ -No Diagnosis/symptom? @ -Nontraumatic right shoulder pain, cervical radiculopathy Acute, or Chronic, or Acute on Chronic? @ -Acute Uncomplicated (without systemic symptoms) or Complicated (systemic symptoms)? @ -Uncomplicated Side effects of treatment? @ -No Exacerbation, Progression, or Severe Exacerbation? @ -No Poses a threat to life or bodily function? How? (Chest pain, USA, [place], pneumonia, PE, COPD, DKA, ARF, appy, cholecystitis, CVA, Diverticulitis, Homicidal, Suicidal, threat to staff... and all critical care pts) @ -No Disposition Clinical Impression: Shoulder pain, Cervical radiculopathy Disposition: HOME SELF-CARE Condition: Stable Instructions (If sedation given, give patient instructions): Cervical Radiculopathy (ED), Shoulder Pain (ED) Additional Instructions: Please return to the Emergency Department if symptoms worsen or any other concerns. Prescriptions: Ibuprofen [Motrin] 800 mg PO Q8HR PRN #30 tab PRN Reason: Pain Is patient prescribed a controlled substance at d/c from ED?: No Referrals: Jasmin Iglesias MD [Primary Care Provider] - 1-2 days Arron Morrison MD [STAFF PHYSICIAN] - 1-2 days Time of Disposition: 12:04
--- NOTE | 2024-12-19 11:42 | XR ---
EXAMINATION TYPE: XR shoulder complete RT DATE OF EXAM: 12/19/2024 10:58 AM COMPARISON: None CLINICAL INDICATION: Female, 74 years old with history of pain; PHH, pain TECHNIQUE: XR shoulder complete RT; examined in AP, internally rotated and scapular Y projections. FINDINGS: No evidence of acute osseous pathology, joint dislocation, or soft tissue swelling. The remaining po rtions of the visualized chest are unremarkable. Degeneration changes of the acromion, distal clavic le with osteophyte formation. There is osteophyte formation of the glenoid and humeral head. There is joint space narrowing of glenohumeral joint. IMPRESSION: 1. No acute osseous pathology. 2. Mild shoulder osteoarthrosis. [facility], , 12/19/2024 11:40 AM
[2024-12-19] MEDS: MORPHINE SULFATE 4 MG/ML SYRINGE IM STA (12:13)
== END 2024-12-19 12:22 | disposition home or self-care (01) ==
LOC: EC 10:12
DX: M25.511 Pain in right shoulder (principal); M54.12 Radiculopathy, cervical region
CPT/HCPCS: 73030; 99283; 96372; J2270